=== PATIENT | female | born 1960 ===

== ENCOUNTER → 2024-07-04 12:54 | Outpatient (REF) | payer OTHER, SELFPAY | LOC: HWWDC 12:54 | PROVIDERS: ATTENDING PHYSICIAN Internal Medicine Hematology & Oncology; FAMILY PHYSICIAN Family Medicine; REFERRING PHYSICIAN Radiology Radiation Oncology | DX: Z12.31 Encounter for screening mammogram for malignant neoplasm of breast (principal) | CPT/HCPCS: 77063; 77067 ==

== ENCOUNTER → 2025-04-24 09:14 | Outpatient (REF) | payer OTHER, SELFPAY | LOC: WDC 09:14 | PROVIDERS: ATTENDING PHYSICIAN Family Medicine Geriatric Medicine; FAMILY PHYSICIAN Family Medicine | DX: Z87.898 Personal history of other specified conditions (principal); N63.10 Unspecified lump in the right breast, unspecified quadrant; N63.13 Unspecified lump in the right breast, lower outer quadrant | CPT/HCPCS: 76642; 77061; 77065 ==

== ENCOUNTER → 2025-07-09 16:40 | Outpatient (REF) | payer OTHER, SELFPAY | LOC: WDC 16:40 | PROVIDERS: FAMILY PHYSICIAN Family Medicine | DX: Z12.31 Encounter for screening mammogram for malignant neoplasm of breast (principal) | CPT/HCPCS: 77063; 77067 ==